=== PATIENT | male | born 1945 | race Caucasian/White ===

== ENCOUNTER → 2024-01-06 12:07 | Outpatient (REF) | payer OTHER, SELFPAY ==
[2024-01-06 14:44] LABS: Urine Albumin Negative (Neg - Trace); Urine Bilirubin Negative (Negative); Urine Character Clear (Clear); Urine Color Yellow; Urine Glucose Negative (Negative); Urine Ketone Negative (Negative); Urine Leukocyte Negative (Negative); Urine Nitrite Negative (Negative); Urine Occult Blood Negative (Negative); Urine Urobilinogen Negative (Neg - 1+)
== END ==
LOC: RAD 12:07
PROVIDERS: ATTENDING PHYSICIAN Internal Medicine
DX: M54.50 Low back pain, unspecified (principal); G89.29 Other chronic pain
CPT/HCPCS: 72110; 81003

== ENCOUNTER 2024-02-11 06:30 | Outpatient (RCR) | payer OTHER, SELFPAY | END 2024-02-11 23:59 | disposition home or self-care (01) | LOC: RPT 06:30 | PROVIDERS: ATTENDING PHYSICIAN Internal Medicine; FAMILY PHYSICIAN Internal Medicine | DX: M54.51 Vertebrogenic low back pain (principal); Z73.6 Limitation of activities due to disability; M54.6 Pain in thoracic spine | CPT/HCPCS: 97010; 97110; 97140; 97162; 97530 ==

== ENCOUNTER → 2024-02-15 12:36 | Outpatient (REF) | payer OTHER, SELFPAY | LOC: RAD 12:36 | PROVIDERS: ATTENDING PHYSICIAN Internal Medicine | DX: G89.29 Other chronic pain (principal); M54.6 Pain in thoracic spine; M41.34 Thoracogenic scoliosis, thoracic region | CPT/HCPCS: 72072 ==

== ENCOUNTER 2024-02-24 13:56 | Outpatient (RCR) | payer OTHER, SELFPAY | END 2024-03-14 06:27 | disposition home or self-care (01) | LOC: RPT 13:56 | PROVIDERS: ATTENDING PHYSICIAN Internal Medicine; FAMILY PHYSICIAN Internal Medicine | DX: M54.51 Vertebrogenic low back pain (principal); M54.6 Pain in thoracic spine | CPT/HCPCS: 97010; 97110; 97140; 97530 ==

== ENCOUNTER → 2024-04-04 08:04 | Outpatient (REF) | payer OTHER, SELFPAY | LOC: WOUND 08:04 | PROVIDERS: ATTENDING PHYSICIAN Surgery; FAMILY PHYSICIAN Internal Medicine | DX: I83.223 Varicose veins of left lower extremity with both ulcer of ankle and inflammation (principal); L97.322 Non-pressure chronic ulcer of left ankle with fat layer exposed; I73.9 Peripheral vascular disease, unspecified; I83.92 Asymptomatic varicose veins of left lower extremity | CPT/HCPCS: 11042; 99204 ==

== ENCOUNTER → 2024-04-08 08:20 | Outpatient (REF) | payer OTHER, SELFPAY | LOC: RAD 08:20 | PROVIDERS: ATTENDING PHYSICIAN Surgery; FAMILY PHYSICIAN Internal Medicine | DX: I83.223 Varicose veins of left lower extremity with both ulcer of ankle and inflammation (principal); I73.9 Peripheral vascular disease, unspecified; I87.2 Venous insufficiency (chronic) (peripheral) | CPT/HCPCS: 93922; 93925; 93971 ==

== ENCOUNTER → 2024-04-11 09:15 | Outpatient (REF) | payer OTHER, SELFPAY | LOC: WOUND 09:15 | PROVIDERS: ATTENDING PHYSICIAN Surgery; FAMILY PHYSICIAN Internal Medicine | DX: I83.223 Varicose veins of left lower extremity with both ulcer of ankle and inflammation (principal); L97.322 Non-pressure chronic ulcer of left ankle with fat layer exposed; I73.9 Peripheral vascular disease, unspecified; I83.92 Asymptomatic varicose veins of left lower extremity | CPT/HCPCS: 29581; 99213 ==

== ENCOUNTER → 2024-04-15 07:51 | Outpatient (REF) | payer OTHER, SELFPAY | LOC: WOUND 07:51 | PROVIDERS: ATTENDING PHYSICIAN Surgery; FAMILY PHYSICIAN Internal Medicine | DX: I83.223 Varicose veins of left lower extremity with both ulcer of ankle and inflammation (principal); L97.322 Non-pressure chronic ulcer of left ankle with fat layer exposed; I73.9 Peripheral vascular disease, unspecified; I83.92 Asymptomatic varicose veins of left lower extremity | CPT/HCPCS: 29580 ==

== ENCOUNTER → 2024-04-21 09:32 | Outpatient (REF) | payer OTHER, SELFPAY | LOC: WOUND 09:32 | PROVIDERS: ATTENDING PHYSICIAN Surgery; FAMILY PHYSICIAN Internal Medicine | DX: I83.223 Varicose veins of left lower extremity with both ulcer of ankle and inflammation (principal); L97.322 Non-pressure chronic ulcer of left ankle with fat layer exposed; I73.9 Peripheral vascular disease, unspecified; I83.92 Asymptomatic varicose veins of left lower extremity | CPT/HCPCS: 11042 ==

== ENCOUNTER → 2024-04-28 09:43 | Outpatient (REF) | payer OTHER, SELFPAY | LOC: WOUND 09:43 | PROVIDERS: ATTENDING PHYSICIAN Surgery; FAMILY PHYSICIAN Internal Medicine | DX: I83.223 Varicose veins of left lower extremity with both ulcer of ankle and inflammation (principal); L97.322 Non-pressure chronic ulcer of left ankle with fat layer exposed; I73.9 Peripheral vascular disease, unspecified; I83.92 Asymptomatic varicose veins of left lower extremity | CPT/HCPCS: 11042 ==

== ENCOUNTER → 2024-05-04 09:25 | Outpatient (REF) | payer OTHER, SELFPAY | LOC: WOUND 09:25 | PROVIDERS: ATTENDING PHYSICIAN Surgery; FAMILY PHYSICIAN Internal Medicine | DX: I83.223 Varicose veins of left lower extremity with both ulcer of ankle and inflammation (principal); L97.322 Non-pressure chronic ulcer of left ankle with fat layer exposed; I73.9 Peripheral vascular disease, unspecified; I83.92 Asymptomatic varicose veins of left lower extremity | CPT/HCPCS: 29580 ==

== ENCOUNTER → 2024-05-11 09:25 | Outpatient (REF) | payer OTHER, SELFPAY | LOC: HWEVLT 09:25 | PROVIDERS: ATTENDING PHYSICIAN Radiology Vascular & Interventional Radiology | DX: I83.892 Varicose veins of left lower extremity with other complications (principal) | CPT/HCPCS: 36478; C1769 ==

== ENCOUNTER → 2024-05-24 08:56 | Outpatient (REF) | payer OTHER, SELFPAY | LOC: WOUND 08:56 | PROVIDERS: ATTENDING PHYSICIAN Surgery; FAMILY PHYSICIAN Internal Medicine | DX: I83.223 Varicose veins of left lower extremity with both ulcer of ankle and inflammation (principal); L97.322 Non-pressure chronic ulcer of left ankle with fat layer exposed; I87.2 Venous insufficiency (chronic) (peripheral); I73.9 Peripheral vascular disease, unspecified; I83.92 Asymptomatic varicose veins of left lower extremity | CPT/HCPCS: 99212 ==

== ENCOUNTER → 2024-05-25 11:25 | Outpatient (REF) | payer OTHER, SELFPAY | LOC: HWEVLT 11:25 | PROVIDERS: ATTENDING PHYSICIAN Radiology Vascular & Interventional Radiology | DX: I83.892 Varicose veins of left lower extremity with other complications (principal) | CPT/HCPCS: 93971 ==